=== PATIENT | female | born 1960 | race Caucasian/White ===

== ENCOUNTER → 2017-04-27 | Outpatient (CLI) | payer BC | LOC: MAMO 14:00 | DX: Z12.31 Encounter for screening mammogram for malignant neoplasm of breast (principal) | CPT/HCPCS: G0202 ==

== ENCOUNTER → 2020-10-30 | Outpatient (CLI) | payer BC, SELFPAY ==
[~2020-10-30] MED LIST: AMLODIPINE BESYL5 MG PO; ASPIRIN EC81 MG PO; ATORVASTATIN CA10 MG PO; DOCUSATE SODIU100 MG PO; GLUCOPHAGE 500500 MG GT; LISINOPRIL20 MG PO; LOPRESSOR 25 MG25 MG PO; METRONIDAZOLE500 MG PO
== END ==
LOC: CT 13:40
DX: R10.32 Left lower quadrant pain (principal); T83.718D Erosion of other implanted mesh to organ or tissue, subsequent encounter; K66.0 Peritoneal adhesions (postprocedural) (postinfection); R10.2 Pelvic and perineal pain; R32 Unspecified urinary incontinence; K57.90 Diverticulosis of intestine, part unspecified, without perforation or abscess without bleeding
CPT/HCPCS: Q9967

== ENCOUNTER 2020-12-15 05:49 | Observation (INO) | payer BC, OTHER ==
[~2020-12-15] VITALS: Ht 157.5 cm; Wt 77.1 kg
[2020-12-15 06:37] LABS: HEMOGLOBIN 14.4 gm/dl (12.3-15.3); RED BLOOD COUNT 5.22 M/UL (4.00-5.10); WHITE BLOOD COUNT 8.8 K/UL (4.5-11.0)
[2020-12-15 06:57] LABS: BUN/CREATININE RATIO 22 (0-10)
[2020-12-15] MEDS ORDERED: METRONIDAZOLE500 MG PO (11:06)
[2020-12-15] MEDS ORDERED: GLUCOPHAGE 500500 MG GT (11:07)
[2020-12-15] MEDS ORDERED: ATORVASTATIN CA10 MG PO (11:08)
[2020-12-15] MEDS ORDERED: LISINOPRIL20 MG PO (11:08)
[2020-12-15] MEDS ORDERED: AMLODIPINE BESYL5 MG PO (11:08)
[2020-12-16 03:48] LABS: HEMOGLOBIN 12.7 gm/dl (12.3-15.3)
[2020-12-16 03:55] LABS: RED BLOOD COUNT 4.69 M/UL (4.00-5.10); WHITE BLOOD COUNT 6.2 K/UL (4.5-11.0)
[2020-12-16 04:05] LABS: BUN/CREATININE RATIO 22 (0-10)
[2020-12-17 06:08] LABS: HEMOGLOBIN 13.8 gm/dl (12.3-15.3); WHITE BLOOD COUNT 7.2 K/UL (4.5-11.0)
[2020-12-17 07:14] LABS: BUN/CREATININE RATIO 24 (0-10)
[2020-12-18 03:34] LABS: HEMOGLOBIN 13.7 gm/dl (12.3-15.3); RED BLOOD COUNT 4.98 M/UL (4.00-5.10)
[2020-12-18 03:38] LABS: WHITE BLOOD COUNT 12.8 K/UL (4.5-11.0)
[2020-12-18 03:58] LABS: BUN/CREATININE RATIO 33 (0-10)
[2020-12-18] MEDS ORDERED: DOCUSATE SODIU100 MG PO (10:20)
[2020-12-18] MEDS ORDERED: LOPRESSOR 25 MG25 MG PO (10:20)
[2020-12-18] MEDS ORDERED: ASPIRIN EC81 MG PO (10:20)
[2020-12-18 17:09] LABS: EBV AB VCA, IGM <36.0 U/mL (0.0-35.9)
[2020-12-19 23:09] LABS: CMV QUANT DNA PCR (PLASMA) Negative (Negative)
== END 2020-12-18 13:54 | disposition home or self-care (01) ==
LOC: ER1 05:49 → CDU 08:50 → MED SURG 4 08:50
PROVIDERS: Emergency Medicine; Internal Medicine; Physician Assistant; ADMIT Family Medicine
DX: I25.110 Atherosclerotic heart disease of native coronary artery with unstable angina pectoris (principal); I21.4 Non-ST elevation (NSTEMI) myocardial infarction; I42.8 Other cardiomyopathies; I16.0 Hypertensive urgency; E87.2 Acidosis; E11.9 Type 2 diabetes mellitus without complications; E78.5 Hyperlipidemia, unspecified; I44.7 Left bundle-branch block, unspecified; K59.00 Constipation, unspecified; K57.90 Diverticulosis of intestine, part unspecified, without perforation or abscess without bleeding; I10 Essential (primary) hypertension; Z20.822 Contact with and (suspected) exposure to COVID-19; Z79.84 Long term (current) use of oral hypoglycemic drugs; Z87.19 Personal history of other diseases of the digestive system
CPT/HCPCS: ECHO; 36415; 71045; 80048; 80053; 81001; 82550; 82553; 82962; 83605; 83690; 83880; 84484; 85025; 85027; 85610; 85730; 87497; 93005; 93306; 96372; 96374; 96375; 99152; 99285; C1769; C1894; G0378; J1644; J2250; J2930; J3010; J7040; J7120; Q9967; U0002

== ENCOUNTER 2020-12-27 16:14 | Emergency (ER) | payer BC, OTHER ==
[2020-12-27 17:27] LABS: HEMOGLOBIN 15.1 gm/dl (12.3-15.3); RED BLOOD COUNT 5.43 M/UL (4.00-5.10); WHITE BLOOD COUNT 6.8 K/UL (4.5-11.0)
[2020-12-27 17:49] LABS: BUN/CREATININE RATIO 32 (0-10)
== END 2020-12-27 19:47 | disposition home or self-care (01) ==
LOC: ER1 16:14
PROVIDERS: Preventive Medicine Occupational Medicine
DX: Z23 Encounter for immunization (principal); U07.1 COVID-19; I11.9 Hypertensive heart disease without heart failure; I25.10 Atherosclerotic heart disease of native coronary artery without angina pectoris; E11.9 Type 2 diabetes mellitus without complications
CPT/HCPCS: 36415; 71045; 80053; 85025; 99285; M0239

== ENCOUNTER → 2021-03-21 | Outpatient (CLI) | payer BC, OTHER | LOC: HEART 5 11:00 | DX: I50.9 Heart failure, unspecified (principal); I42.8 Other cardiomyopathies | CPT/HCPCS: 93306 ==

== ENCOUNTER → 2021-07-17 | Outpatient (CLI) | payer BC | LOC: HEART 5 10:51 | DX: I50.9 Heart failure, unspecified (principal) ==

== ENCOUNTER → 2021-11-06 | Outpatient (CLI) | payer BC ==
[2021-11-07 11:13] LABS: CALCIUM, SERUM 10.2 mg/dL (8.7-10.3); CREATININE, SERUM 0.81 mg/dL (0.57-1.00)
== END ==
LOC: LAB 14:47
PROVIDERS: Nurse Practitioner
DX: I50.22 Chronic systolic (congestive) heart failure (principal)
CPT/HCPCS: 36415; 80048

== ENCOUNTER → 2022-05-29 | Outpatient (CLI) | payer OTHER ==
[2022-05-29 10:39] LABS: HEMOGLOBIN 12.8 gm/dl (12.3-15.3); RED BLOOD COUNT 4.61 M/UL (4.00-5.10); WHITE BLOOD COUNT 8.3 K/UL (4.5-11.0)
[2022-05-29 16:59] LABS: BUN/CREATININE RATIO 24 (0-10)
== END ==
LOC: LAB 10:04
PROVIDERS: Physician Assistant
DX: E11.9 Type 2 diabetes mellitus without complications (principal)
CPT/HCPCS: 36415; 80048; 80061; 80076; 82607; 83036; 84443; 85025